=== PATIENT | female | born 1945 | race Two or more races ===

== ENCOUNTER → 2016-11-13 | Outpatient (CLI) | payer OTHER ==
[~2016-11-13] MED LIST: ASPIRIN81 M2 PO; GLUCOTROL PO; KCL PO; LANTUS SOLOSTAR3 ML SQ; LASIX20 MG PO; LINZESS290 MCG PO; LIPITOR PO; METOCLOPRAMIDE H5 MG PO; PLETAL100 M1 PO; PREDNISONE10 MG PO; SENNA8.6 M1 PO; VALTREX PO; VIBRAMYCIN100 M1 PO
--- NOTE | ~2016-11-13 | US37 ---
[facility] A Service of [facility] & [facility] RADIOLOGY TEXT RESULTS PATIENT: CODY TRAN LOCATION: CNIV : 47 UNIT #: [id number] AGE: [address]: Maira Fleming MD SEX: F ORDER DR: [id number] [facility] [address] [place], [place] [address] [id number] O MR#: [id number] Acc #: [id number] NAME: CODY TRAN : 1945 SEX: F STUDY DATE/TIME: 11/13/2016 11:24 UNIT: CNIV ROOM: STUDY DESCRIPTION: US Carotid W/Doppler Bilateral Attending Physician: Maira Fleming M.D. Referring Physician: Maira Fleming M.D. Ordering Physician: Maira Fleming M.D. Primary Care Physician: [facility]ly [facility] MEDICAL [facility]AGING REPORT This report is preliminary unless electronic signature is present EXAM Bilateral carotid Doppler. REASON FOR EXAM Carotid bruit. FINDINGS The right common carotid, internal carotid and external carotid arteries are patent with mild plaque noted at the carotid bulb, with extension to the proximal internal carotid artery. Velocity of the common carotid artery is 69 cm/second. Peak systolic velocity of the right proximal, internal carotid artery is 33 cm/second with an end-diastolic velocity of 11 cm/second for an ICA to CCA ratio of 0.48. External carotid artery with a velocity of 84 cm/second. The vertebral artery is visualized with antegrade flow. Left common carotid, internal carotid and external carotid arteries are patent with minimal plaque noted at the carotid bulb and proximal internal carotid artery. Velocity of the common carotid artery is 63 cm/second. Peak systolic velocity of the left proximal internal carotid artery is 40 cm/second with an end-diastolic velocity of 19 cm/second, for an ICA to CCA ratio of 0.63. External carotid artery with a velocity of 85 cm/second. The vertebral artery is visualized with antegrade flow. IMPRESSION 1. Less than 50% stenosis of the right and left internal carotid arteries. 2. No stenosis of the external carotid arteries. 3. Antegrade flow of the vertebral arteries. Dictated by... Maira [facility] M[facility] A Service of [facility] RADIOLOGY TEXT RESULTS PATIENT: CODY TRAN [id number] : [birth year] UNIT #: [id number] AGE: [address]: Maira Fleming MD SEX: F ORDER DR: THIS IS AN ELECTRONICALLY VERIFIED REPORT Maira Fleming M.D. at 11/14/2016 9:25 AM CAMELIA/alex TD: 11/13/2016 15:55 JOB #: [id number] MEDICAL IMAGING REPORT COPY
--- NOTE | ~2016-11-13 | US135 ---
[facility] A Service of [facility] & [facility] RADIOLOGY TEXT RESULTS PATIENT: CODY TRAN LOCATION: CNIV : 47 UNIT #: [id number] AGE: [address]: Maira Fleming MD SEX: F ORDER DR: [id number] [facility] [address] [place], [place] [address] [id number] O MR#: [id number] Acc #: [id number] NAME: CODY TRAN : 1945 SEX: F STUDY DATE/TIME: 11/13/2016 10:31 UNIT: CNIV ROOM: STUDY DESCRIPTION: U/L Ext Art Study Comp Christopher Attending Physician: Maira Fleming M.D. Referring Physician: Maira Fleming M.D. Ordering Physician: Maira Fleming M.D. Primary Care Physician: [facility] MEDICAL IMAGING REPORT This report is preliminary unless electronic signature is present EXAM Bilateral lower extremity segmental pressure study. REASON FOR EXAM Claudication. FINDINGS The right brachial pressure is 132, left is 116. Right high thigh pressure is 202, low thigh 141, calf 91, dorsalis pedis 126 and posterior tibial not obtained, for an RAÚL of 0.95 and a first toe pressure of 50 mmHg. 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 PVR waveform from high thigh to ankle are obtained and appear to be relatively symmetric and intact at all levels bilaterally. Right first toe digital waveform appeared to be intact. IMPRESSION No arterial insufficiency in either the right or the left lower extremity based on RAÚL and waveforms with adequate perfusion of the right first toe. Dictated by... Maira Fleming M.D. THIS IS AN ELECTRONICALLY VERIFIED REPORT Maira Fleming M.D. at 11/14/2016 9:25 AM FPN/alex [facility] A Service of [facility] RADIOLOGY TEXT RESULTS PATIENT: CODY TRAN LOCATION: [facility] : 49 UNIT #: [id number] AGE: [address]: Maira Fleming MD SEX: F ORDER DR: TD: 11/13/2016 15:46 JOB #: [id number] MEDICAL IMAGING REPORT COPY
== END | disposition home or self-care (01) ==
LOC: CNIV 10:12
DX: R09.89 Other specified symptoms and signs involving the circulatory and respiratory systems (principal); I65.23 Occlusion and stenosis of bilateral carotid arteries; I73.9 Peripheral vascular disease, unspecified; E11.65 Type 2 diabetes mellitus with hyperglycemia
CPT/HCPCS: 93880; 93923

== ENCOUNTER → 2017-05-14 | Outpatient (CLI) | payer OTHER ==
--- NOTE | ~2017-05-14 | MY29 ---
[facility] A Service of [facility] & [facility] RADIOLOGY TEXT RESULTS PATIENT: CODY TRAN LOCATION: [facility] : 49 UNIT #: [id number] AGE: [address]: Jania Collins MD SEX: F ORDER DR: [id number] [place] [id number] [facility]. [place], [place] [address] [id number] O MR#: [id number] Acc #: [id number] NAME: CODY TRAN : 1945 SEX: F STUDY DATE/TIME: 05/14/2017 15:25 UNIT: [facility] ROOM: STUDY DESCRIPTION: [facility] SCREENING W/ CAD BILAT Attending Physician: Jania Collins M.D. Ordering Physician: Jania Collins M.D. Primary Care Physician: Jania Collins M.D. MEDICAL IMAGING REPORT This report is preliminary unless electronic signature is present EXAM Bilateral digital screening mammogram with CAD. COMPARISON None. Baseline exam. INDICATIONS 71-year-old female. No personal or family history of breast cancer, presenting for breast cancer screening. FINDINGS There are scattered fibroglandular densities. Evaluation of the posterior tissues on the left is limited by indwelling pacemaker device, obscuring evaluation of the upper posterior third on MLO view. Evaluation of the posterior tissues bilaterally is limited due to limited positioning of the patient as the patient is in a wheelchair. There are no suspicious findings in the left breast. In the anterior third of the right breast localizing approximately the 3 o'clock position there is a focal asymmetry measuring up to approximately 7 mm. IMPRESSION 1. No mammographic evidence of malignancy in the left breast. 2. Right breast focal asymmetry. Further evaluation with spot compression MLO view and spot compression CC view is recommended, possibly followed by right breast ultrasound if the finding persists. Patients over the age of 40 are entered into a reminder system with target due date for the next mammogram. A result letter will also be sent to the patient. BIRADS: 0 Incomplete; need additional imaging evaluation and/or prior [facility] A Service of [facility] & [facility] RADIOLOGY TEXT RESULTS PATIENT: CODY TRAN [id number] : [birth year] UNIT #: [id number] AGE: [address]: Jania Collins MD SEX: F ORDER DR: mammograms for comparison. Dictated by... Wagner Maravilla M.D. THIS IS AN ELECTRONICALLY VERIFIED REPORT Wagner Maravilla M.D. at 05/15/2017 11:06 PM Luz TD: 05/15/2017 16:20 JOB #: [id number] MEDICAL IMAGING REPORT Page 1 of 1 COPY
== END | disposition home or self-care (01) ==
LOC: CWCC 14:47
DX: Z12.31 Encounter for screening mammogram for malignant neoplasm of breast (principal); N64.89 Other specified disorders of breast
CPT/HCPCS: G0202